=== PATIENT | female | born 1990 | race Asian ===

== ENCOUNTER 2021-04-22 20:03 | Emergency (ER) | payer OTHER ==
[~2021-04-22] VITALS: Ht 152.4 cm; Wt 71.0 kg
[2021-04-22 20:43] VITALS: BP 142/85
== END 2021-04-22 23:06 | disposition left against medical advice (07) ==
LOC: EMS 20:04
DX: R20.0 Anesthesia of skin (principal); Z53.21 Procedure and treatment not carried out due to patient leaving prior to being seen by health care provider
CPT/HCPCS: 93005